=== PATIENT | female | born 1990 | race Hispanic/Latino ===

== ENCOUNTER 2018-10-23 08:41 | Outpatient (CLI) | payer BC ==
--- NOTE | 2018-10-23 15:48 | NM ---
Exam: Nuclear medicine parathyroid scan with planar and SPECT imaging HISTORY: Hyperparathyroidism, unspecified TECHNIQUE: Patient was administered 26.2 mCi of technetium 99m sestamibi intravenously. SPECT and evelyn brandon imaging was performed FINDINGS: Appropriate uptake of the radiotracer by the salivary glands. Appropriate uptake in the thy roid bed on the immediate images. No radiotracer retention in the thyroid bed on the 1 and 2 hour images. IMPRESSION: No scintigraphic evidence of parathyroid adenoma. Consider soft tissue neck CT utilizing parathyroid protocol if clinically warranted.
== END 2018-10-23 08:42 | disposition home or self-care (01) ==
LOC: NM 08:41
PROVIDERS: ATTEND Otolaryngology Plastic Surgery within the Head & Neck
DX: E21.3 Hyperparathyroidism, unspecified (principal)
CPT/HCPCS: 78072; A9500

== ENCOUNTER 2018-11-06 10:51 | Outpatient (CLI) | payer BC ==
[2018-11-06] MEDS ORDERED: Iopamidol 370 76% 100 ML VIAL ONE (11:45)
[2018-11-06] MEDS ORDERED: Iopamidol 370 76% 50 ML VIAL FS ONE (11:45)
--- NOTE | 2018-11-06 14:04 | CT ---
CT neck with and without contrast: DATE: 11/06/2018 HISTORY: 28-year-old female with hyperparathyroidism. TECHNIQUE: Precontrast scan, postcontrast 25 seconds delayed scan, and postcontrast 65 second delayed scan, from slightly inferior to [place] to skull base. FINDINGS: At the C7-T1 level, abutting the posterior surface of the mid pole of the right lobe of the thyroid g land, abutting the right side of the upper esophagus, there is a 1 x 0.7 x 0.3 cm soft tissue density nodule that does not appear to have intrinsic iodine, and moderately enhances. (Images 45 of 89, series 5; 45 of 89, series 2; 134 178, series 3; 76 of 157, series 604; 86 of 180, series 602; 76 of 157, series [birth year]1944 of 89, series 6). This is a moderately good candidate for parathyroid ad enoma. IMPRESSION: Moderate candidate for parathyroid adenoma on the right side.
== END 2018-11-06 10:52 | disposition home or self-care (01) ==
LOC: CT 10:51
PROVIDERS: ATTEND Otolaryngology Plastic Surgery within the Head & Neck
DX: E21.3 Hyperparathyroidism, unspecified (principal); D35.1 Benign neoplasm of parathyroid gland
CPT/HCPCS: 70492; Q9967